=== PATIENT | female | born 1940 | race Caucasian/White ===

== ENCOUNTER → 2017-11-30 | Day surgery (SDC) | payer OTHER ==
[~2017-11-30] MED LIST: ASPIR 8181 MG PO; GABAPENTIN300 MG PO; GLIPIZIDE ER2.5 MG PO; JANUMET 50-5001 EACH PO; LASIX20 MG PO; LIPITOR40 MG PO; LOPRESSOR25 MG PO; PEPCID20 MG PO; SYNTHROID50 MCG PO
== END | disposition home or self-care (01) ==
LOC: ADM 11-10 13:45 → CIR.AMB 11-16 13:45
DX: S22.088A Other fracture of T11-T12 vertebra, initial encounter for closed fracture (principal)